=== PATIENT | female | born 2000 | race Hispanic/Latino ===

== ENCOUNTER 2022-08-17 11:45 | Emergency (ER) | payer BC, OTHER | END 2022-08-17 12:38 | disposition home or self-care (01) | LOC: CSHERS 11:45 | DX: M79.671 Pain in right foot (principal) | CPT/HCPCS: 99283 ==

== ENCOUNTER 2025-03-26 11:20 | Emergency (ER) | payer OTHER | END 2025-03-26 11:40 | disposition home or self-care (01) | LOC: CSHERS 11:20 | DX: R11.2 Nausea with vomiting, unspecified (principal) | CPT/HCPCS: 99283; Q0162 ==